=== PATIENT | male | born 1975 ===

== ENCOUNTER 2022-01-31 13:38 | Emergency (ER) | payer SELFPAY ==
[~2022-01-31] VITALS: Ht 165.1 cm; Wt 75.0 kg
[2022-01-31] MEDS ORDERED: KETOROLAC TROMETHAMINE 60 MG/2 ML VIAL IM ONE (14:30)
[2022-01-31] MEDS ORDERED: CYCLOBENZAPRINE HCL 10 MG TABLET PO ONE (14:30)
[2022-01-31] MEDS ORDERED: CYCL-397 PO (15:43)
[2022-01-31 15:45] VITALS: BP 130/68
== END 2022-01-31 16:12 | disposition home or self-care (01) ==
LOC: EMS 13:41
DX: M54.50 Low back pain, unspecified (principal); F12.90 Cannabis use, unspecified, uncomplicated
CPT/HCPCS: 99283; 96372; J1885